=== PATIENT | female | born 1975 | race Caucasian/White ===

== ENCOUNTER 2016-07-25 13:27 | Emergency (ER) | payer OTHER ==
[2016-07-25 13:28] VITALS: BMI 30.2
[2016-07-25 14:02] VITALS: BP 116/81; PULSE 73; RESP 18; TEMP 97.5; O2SAT 100
--- NOTE | 2016-07-25 14:49 | ED PDOC ---
Arrival/HPI - General Chief Complaint: Finger,Hand,&Wrist Time Seen by Provider: 07/25/16 13:55 Historian: Patient - History of Present Illness Narrative History of Present Illness (Text): 07/25/16 13:55 A 41 year old female, who denies any past medical history, presents to the emergency department after closing the trunk door of her car on her right thumb that took place prior to arrival. Patient reports the finger was stuck for about 15 minutes before someone came to open the truck. She complains of pain primary to the right thumb but notes some shooting pain radiating up the right arm. Patient denies any other injuries or complaints at this time. PMD: Dr. Guerrero Time/Duration: Prior to Arrival Symptom Onset: Sudden Symptom Course: Unchanged Quality: Other ("pain") Activities at Onset: Rest Modifying Factors (Text): none Context: Other Associated Symptoms (Text): pain shoot up right arm Past Medical History - Provider Review Nursing Documentation Reviewed: Yes - Infectious Disease Hx of Infectious Diseases: None - Tetanus Immunization Tetanus Immunization: Unknown - Past Medical History Past Medical History: No Previous - Psychiatric Hx Depression: No Hx Emotional Abuse: No Hx Physical Abuse: No Hx Substance Use: No - Surgical History Hx Appendectomy: Yes Hx Tubal Ligation: Yes - Suicidal Assessment Feels Threatened In Home Enviroment: No Family/Social History - Physician Review Nursing Documentation Reviewed: Yes Family/Social History: No Known Family HX Smoking Status: Never Smoked Hx Alcohol Use: No Hx Substance Use: No Allergies/Home Meds Allergies/Adverse Reactions: Allergies No Known Allergies Allergy (Verified 07/25/16 13:50) Review of Systems - Physician Review All systems were reviewed & negative as marked: Yes - Review of Systems Constitutional: absent: Other (no other injuries) Musculoskeletal: Other (right thumb pain shooting up the right arms) Physical Exam Vital Signs Reviewed: Yes Vital Signs Temp Pulse Resp BP Pulse Ox 07/25/16 13:28 97.5 F L 73 18 116/81 100 Temperature: Afebrile Blood Pressure: Normal Pulse: Regular Respiratory Rate: Normal Appearance: Positive for: Well-Appearing, Non-Toxic, Comfortable Pain Distress: None Mental Status: Positive for: Alert and Oriented X 3 - Systems Exam Head: Present: Atraumatic, Normocephalic Conjunctiva: Present: Normal Mouth: Present: Moist Mucous Membranes Neck: Present: Normal Range of Motion Upper Extremity: Present: Normal ROM, NORMAL PULSES, Tenderness (swelling to the volar aspect of the right thumb), Swelling (swelling to the volar aspect of the right thumb;), Neurovascularly Intact, Other (small amounts of bleeding to the matrix of the nail bed; hematoma to the mid thumb). No: Cyanosis, Edema, Temperature Abnormalties, Deformity Lower Extremity: Present: Normal Inspection Neurological: Present: GCS=15, CN II-XII Intact, Speech Normal Skin: Present: Warm, Dry, Normal Color. No: Rashes Psychiatric: Present: Alert, Oriented x 3, Normal Insight, Normal Concentration Medical Decision Making ED Course and Treatment: 07/25/16 13:55 Impression: A 41 year old female after getting her right thumb stuck in the trunk. Differential Diagnosis include but are not limited to: fractures vs. musculoskeletal Plan: -- Right hand X-ray -- Reassess and disposition Progress Notes: 07/25/16 15:00 Right Hand X-ray: Creator : Arias Martin MD COMPARISON: None. FINDINGS: BONES: There is a transverse nondisplaced linear fracture through 1st distal phalanx JOINTS: Normal. No osteoarthritic changes. SOFT TISSUES: Normal. OTHER FINDINGS: None. IMPRESSION: There is a transverse nondisplaced linear fracture through 1st distal phalanx Patient's thumb placed in a digital block. On re-evaluation, the patient is in no acute distress. I have discussed the results and plan with the patient, who expresses understanding. Patient in agreement with plan to discharged home. Patient is stable for discharge. Patient was instructed to follow up with orthopedist in 1-2 days or return if symptoms worsen or new concerning symptoms arise. 07/25/16 15:14 Patient is more comfortable here in the ED with digital block; x-ray shows noted nondisplaced fx. Placed in thumb spica splint - will d/c in splint on nsaid and analgesic and f/u ortho. - RAD Interpretation Radiology Orders: 07/25/16 13:55 HAND RIGHT 3 VIEWS [RAD] Stat - Scribe Statement The provider has reviewed the documentation as recorded by the Scribe Sam Blakely Provider Scribe Attestation: All medical record entries made by the Scribe were at my direction and personally dictated by me. I have reviewed the chart and agree that the record accurately reflects my personal performance of the history, physical exam, medical decision making, and the department course for this patient. I have also personally directed, reviewed, and agree with the discharge instructions and disposition. Disposition/Present on Arrival - Present on Arrival Any Indicators Present on Arrival: No History of DVT/PE: No History of Uncontrolled Diabetes: No Urinary Catheter: No History of Decub. Ulcer: No History Surgical Site Infection Following: None - Disposition Have Diagnosis and Disposition been Completed?: Yes Diagnosis: Fracture of thumb, right, closed Disposition: HOME/ ROUTINE Disposition Time: 15:20 Patient Plan: Discharge Condition: GOOD Discharge Instructions (ExitCare): Thumb Fracture (ED) Additional Instructions: Maintain splint and use pain medicine as needed. Follow up in the orthopedic clinic. Return to the emergency department if any new concerning symptoms. Prescriptions: Naproxen [Naprosyn] 500 mg PO BID PRN #30 tab PRN Reason: Pain oxyCODONE/Acetaminophen [Percocet 5/325 mg Tab] 1 tab PO Q6H PRN #20 tab PRN Reason: Pain, Severe (8-10) Referrals: Juan Carlos Guerrero MD [Primary Care Provider] - Follow up with primary
--- NOTE | 2016-07-25 14:54 | RAD ---
PROCEDURE: Right Hand Radiographs. HISTORY: closed trunk on thumb COMPARISON: None. FINDINGS: BONES: There is a transverse nondisplaced linear fracture through 1st distal phalanx JOINTS: Normal. No osteoarthritic changes. SOFT TISSUES: Normal. OTHER FINDINGS: None. IMPRESSION: There is a transverse nondisplaced linear fracture through 1st distal phalanx
== END 2016-07-25 15:25 | disposition home or self-care (01) ==
LOC: ED 13:27
DX: S62.524A Nondisplaced fracture of distal phalanx of right thumb, initial encounter for closed fracture (principal); W23.0XXA Caught, crushed, jammed, or pinched between moving objects, initial encounter; Y93.89 Activity, other specified; Y92.89 Other specified places as the place of occurrence of the external cause

== ENCOUNTER 2017-01-07 08:57 | Emergency (ER) | payer OTHER ==
[2017-01-07 08:58] VITALS: BMI 30.2
[2017-01-07 09:34] VITALS: BP 117/76; PULSE 64; RESP 16; TEMP 98.4; O2SAT 100
--- NOTE | 2017-01-07 09:55 | ED PDOC ---
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 Patient was brought in with her daughter with similar symptoms. She reports chest pain with coughs, but denies any fever, chills, shortness of breath, nausea, vomiting, diarrhea, urinary symptoms, back pain, neck pain, dizziness, or any other complaints. Translated by [place] Orellana PMD Dr. Baron 01/07/17 10:21 Time/Duration: Other (yesterday) Symptom Onset: Sudden Symptom Course: Unchanged Activities at Onset: Light Context: Home Past Medical History - Provider Review Nursing Documentation Reviewed: Yes - Infectious Disease Hx of Infectious Diseases: None - Tetanus Immunization Tetanus Immunization: Unknown - Past Medical History Past Medical History: No Previous - Psychiatric Hx Depression: No Hx Emotional Abuse: No Hx Physical Abuse: No Hx Substance Use: No - Surgical History Hx Appendectomy: Yes Hx Tubal Ligation: Yes - Suicidal Assessment Feels Threatened In Home Enviroment: No Family/Social History - Physician Review Nursing Documentation Reviewed: Yes Family/Social History: No Known Family HX Smoking Status: Never Smoked Hx Alcohol Use: No Hx Substance Use: No Allergies/Home Meds Allergies/Adverse Reactions: Allergies No Known Allergies Allergy (Verified 01/07/17 09:17) Review of Systems - Physician Review All systems were reviewed & negative as marked: Yes - Review of Systems Constitutional: absent: Fevers ENT: Sore Throat Respiratory: Cough (cough with Chest pain) Cardiovascular: Chest Pain Gastrointestinal: absent: Diarrhea, Nausea, Vomiting Genitourinary Female: absent: Dysuria, Frequency, Hematuria Neurological: Headache. absent: Dizziness Physical Exam Vital Signs Reviewed: Yes Vital Signs Temp Pulse Resp BP Pulse Ox 01/07/17 09:17 98.4 F 64 16 117/76 100 Temperature: Afebrile Blood Pressure: Normal Pulse: Regular Respiratory Rate: Normal Appearance: Positive for: Well-Appearing, Non-Toxic, Comfortable Pain Distress: None Mental Status: Positive for: Alert and Oriented X 3 - Systems Exam Head: Present: Atraumatic, Normocephalic Pupils: Present: PERRL Extroacular Muscles: Present: EOMI Conjunctiva: Present: Normal Ears: Present: Normal, NORMAL TM Mouth: Present: Moist Mucous Membranes Pharnyx: Present: Normal. No: ERYTHEMA, EXUDATE Nose (Internal): Present: Normal Inspection Neck: Present: Normal Range of Motion. No: Meningeal Signs Respiratory/Chest: Present: Clear to Auscultation, Good Air Exchange. No: Respiratory Distress, Accessory Muscle Use Abdomen: Present: Normal Bowel Sounds. No: Tenderness, Distention, Peritoneal Signs Back: Present: Normal Inspection Upper Extremity: Present: Normal Inspection. No: Cyanosis, Edema Lower Extremity: Present: Normal Inspection. No: Edema Neurological: Present: GCS=15, CN II-XII Intact, Speech Normal Skin: Present: Warm, Dry, Normal Color. No: Rashes Psychiatric: Present: Alert, Oriented x 3, Normal Insight, Normal Concentration Medical Decision Making ED Course and Treatment: 01/07/17 09:55 Impression: 41 year old female present complaining of sore throat and headache that began yesterday. Differential Diagnosis included but are not limited to: Bronchitis Plan: -- Chest X-ray two views -- Motrin Tab -- Robitussin w/ Codeine -- Reassess and disposition Prior Visits: Notes and results from previous visits were reviewed. Patient was last seen in the emergency department on Progress Notes: CXR was normal. Patient prescribed Motrin and Robitussion with codeine. She will be discharged to follow up with her PMD. - RAD Interpretation Radiology Orders: 01/07/17 09:56 CXR [CHEST TWO VIEWS (PA/LAT)] [RAD] Stat CXR normal. Bellman Driver: ED Physician - Medication Orders Current Medication Orders: Discontinued Medications Guaifenesin/Codeine Phosphate (Robitussin W/Codeine) 10 ml PO STAT STA Stop: 01/07/17 09:57 Last Admin: 01/07/17 10:06 Dose: 10 ml Ibuprofen (Motrin Tab) 600 mg PO STAT STA Stop: 01/07/17 09:57 Last Admin: 01/07/17 10:06 Dose: 600 mg Disposition/Present on Arrival - Present on Arrival Any Indicators Present on Arrival: No History of DVT/PE: No History of Uncontrolled Diabetes: No Urinary Catheter: No History of Decub. Ulcer: No History Surgical Site Infection Following: None - Disposition Have Diagnosis and Disposition been Completed?: Yes Diagnosis: Bronchitis Disposition: HOME/ ROUTINE Disposition Time: 10:30 Patient Plan: Discharge Condition: IMPROVED Discharge Instructions (ExitCare): Acute Bronchitis (ED) Additional Instructions: Ms Brown, thank you for letting us take care of you today. Your provider was Dr. Darby. You were treated for Bronchitis. The emergency medical care you received today was directed at your acute symptoms. If you were prescribed any medication, please fill it and take as directed. It may take several days for your symptoms to resolve. Return to the Emergency Department if your symptoms worsen, do not improve, or if you have any other problems. Please contact your doctor or call one of the physicians/clinics you have been referred to that are listed on the Patient Visit Information form that is included in your discharge packet. Bring any paperwork you were given at discharge with you along with any medications you are taking to your follow up visit. Our treatment cannot replace ongoing medical care by a primary care provider (PCP) outside of the emergency department. Thank you for allowing the [facility] team to be part of your care today. If you had an X-Ray or CT scan: A Radiologist will review the ED reading if any change in treatment is needed we will contact you. If you had a blood, urine, or wound culture: It will take several days for the results, if any change in treatment is needed we will contact you. If you had an STI test: It will take 48 hours for the results. Please call after 1 week if you have not heard back. Prescriptions: guaiFENesin/Codeine [Codeine/Guaifenesin 10 MG/5 Ml-100 MG/5 Ml 5] 10 ml PO Q4H PRN #1 bottle PRN Reason: Cough Ibuprofen [Motrin] 600 mg PO Q6 PRN #30 tab PRN Reason: Pain, Moderate (4-7) Referrals: Juan Carlos Guerrero MD [Primary Care Provider] - Follow up with primary Forms: [facility] ([place])
[2017-01-07] MEDS ORDERED: guaiFENesin-Codeine 100-10mg/5ml Syrup (5 ml) UD PO STA (09:56)
--- NOTE | 2017-01-07 11:25 | RAD ---
HISTORY: cough r/o pna COMPARISON: 03/10/2015 TECHNIQUE: Chest PA and lateral FINDINGS: LUNGS: There is mild peribronchial thickening. There is no focal consolidation to suggest pneumonia PLEURA: No significant pleural effusion identified. No pneumothorax apparent. CARDIOVASCULAR: Normal. OSSEOUS STRUCTURES: No significant abnormalities. VISUALIZED UPPER ABDOMEN: Normal. OTHER FINDINGS: None. IMPRESSION: Mild peribronchial thickening
== END 2017-01-07 10:41 | disposition home or self-care (01) ==
LOC: ED 08:57
DX: J40 Bronchitis, not specified as acute or chronic (principal)